=== PATIENT | male | born 1930 | race Caucasian/White ===

== ENCOUNTER → 2016-11-01 | Outpatient (CLI) | payer MEDICARE, OTHER ==
[~2016-11-01] MED LIST: AMARYL4 MG ORAL; AMBIEN5 MG ORAL; ASPIRIN-LOW81 MG ORAL; CALCIUM500 M2 PO; DIOVAN HCT 80MG1 TAB ORAL; DIOVAN80 MG ORAL; FLOMAX0.4 MG ORAL; JANUVIA25 MG ORAL; PROSCAR5 MG ORAL; PROZAC10 MG ORAL; SERTRALINE HCL50 MG ORAL; SIMVASTATIN40 MG ORAL; TEMAZEPAM30 MG ORAL; ZANTAC150 MG ORAL
--- NOTE | 2016-11-01 15:49 | GI Progress Note ---
Assessment/Plan Problems: (1) Appetite loss ICD Codes: R63.0 - Anorexia SNOMED: 43430101 (2) Depression ICD Codes: F32.9 - Major depressive disorder, single episode, unspecified SNOMED: 76982214 (3) Insomnia ICD Codes: G47.00 - Insomnia, unspecified SNOMED: 223177573 (4) Pancreatic cyst ICD Codes: K86.2 - Cyst of pancreas SNOMED: 43362495 (5) Encounter for diagnostic endoscopy ICD Codes: Z01.818 - Encounter for other preprocedural examination SNOMED: 219834986, 085697198 Status: stable Status Narrative Seen with Dr. Hernandez. Assessment/Plan EUS to evaluate pancreatic cyst scheduled 11/09/16 - NPO @ MN day prior to procedure acknowledged by patient. CA19-9 to be drawn procedure day rx Temazepam 15mg #14 Subjective Gastrointestinal/Abdominal: Reports: no symptoms Subjective decrease in appetite depression increased recently insomnia increased recently Objective T 98.4 132/66 P 82 94 RA WT 162 denies weight loss General Appearance: no apparent distress, alert Cardiovascular: normal rate Respiratory/Chest: normal breath sounds, no respiratory distress Abdominal Exam: normal bowel sounds, non tender, soft Extremities: normal range of motion Objective Abdominal MRI >> multiple cystic lesions on pancreas Mary Ellen Boggs N.P. Nov 01, 2016 15:49
[2016-11-01 16:52] VITALS: BP 132/66
== END | disposition home or self-care (01) ==
LOC: PAN 14:41
DX: Z01.818 Encounter for other preprocedural examination (principal); R63.0 Anorexia; F32.9 Major depressive disorder, single episode, unspecified; G47.00 Insomnia, unspecified; K86.2 Cyst of pancreas
CPT/HCPCS: 99211

== ENCOUNTER → 2016-11-19 | Day surgery (SDC) | payer MEDICARE, OTHER ==
[~2016-11-19] VITALS: Ht 167.6 cm; Wt 71.2 kg
[2016-11-19] VITALS (7 sets, daily range): BP systolic 94–137; BP diastolic 52–79
[~2016-11-19] MED LIST changes: +DiphenhydrAMINE 50mg/ml Inj IVP PRN; +LR 1000ml 1,000 ML IVLG SCH; +LR 1000ml ONE; +Labetalol 5mg/ml 20ml vial IV PRN; +Lidocaine 1% MPF 10mg/ml 5ml ONE; +Propofol 10mg/ml 20ml IV ONE
--- NOTE | 2016-11-19 08:22 | Anethesia Preoperative Eval ---
Anesthesia Pre-op PMH/ROS General Date of Evaluation: Nov 19, 2016 Anesthesiologist: Gregorio ASA Score: ASA 3 Mallampati Score Class I : Soft palate, uvula, fauces, pillars visible Class II: Soft palate, uvula, fauces visible Class III: Soft palate, base of uvula visible Class IV: Only hard plate visible Mallampati Classification: Class III Surgeon: David Diagnosis: Pancreatic cyst Surgical Procedure: EUS Anesthesia History: none Family History: no anesthesia problems Allergies: Coded Allergies: NO KNOWN DRUG ALLERGIES (Verified Allergy, Unknown, 11/19/16) Medications: see eMAR Past Medical History Cardiovascular: Reports: HTN, other - HLD, Denies: CAD, [place], arrhythmia, valve dz Pulmonary: Denies: COPD, [place], asthma, other Gastrointestinal/Genitourinary: Reports: GERD - gastritis, other - pancreatic cyst, h/o colon cancer, Denies: CRI, ESRD Neurologic/Psychiatric: Reports: depression/anxiety, Denies: CVA, TIA, dementia, other Endocrine: Reports: DM, Denies: hypothyroidism, other, steroids HEENT: Denies: [place] (L), [place] (R), cataract (L), cataract (R), glaucoma, other Hematology/Immune: Denies: DVT, anemia, bleeding disorder, other Musculoskeletal/Integumentary: Denies: DDD, DJD, OA, RA, edema, other PSxH Narrative: IHR, colon resection, thigh sx, cataract sx Anesthesia Pre-op Phys. Exam Physician Exam see chart Constitutional: NAD Cardiovascular: RRR Respiratory: CTA Airway Exam Mallampati Score: Class II Anesthesia Pre-op A/P Labs see chart Studies Pre-op Studies: EKG - sr Risk Assessment & Plan Assessment: ASA III Plan: MAC Status Change Before Surgery: No Pre-Antibiotics Drug: N/A SHE HINDS M.D. Nov 19, 2016 08:22
--- NOTE | 2016-11-19 10:03 | Pre-Procedure Note/Attestation ---
Pre-Procedure Note/Attestation Complete Prior to Procedure Planned Procedure: not applicable Procedure Narrative: eus Indications for Procedure Pre-Operative Diagnosis: pancreatic cyst Attestation I attest that I discussed the nature of the procedure; its benefits; risks and complications; and alternatives (and the risks and benefits of such alternatives ), prior to the procedure, with the patient (or the patient's legal printing sales representative). I attest that, if there was a reasonable possibility of needing a blood transfusion, the patient (or the patient's legal printing sales representative) was given the [facility] standardized written summary, pursuant to the Ruddy Anika Blood Safety Act ([place] Health and Safety Code # 1645, as amended). I attest that I re-evaluated the patient just prior to the surgery and that there has been no change in the patient's H&P, except as documented below: GREYSON SINGLETON Nov 19, 2016 10:03
[2016-11-19 10:34] LABS: BASOPHILS % (AUTO) 0.3 % (0.0-2.0); EOSINOPHILS % (AUTO) 0.5 % (0.0-3.0); LYMPHOCYTES % (AUTO) 8.9 % (20.0-45.0); MEAN CORPUSCULAR HEMOGLOBIN 32.5 PG (27.0-31.0); MEAN CORPUSCULAR HGB CONC 32.6 G/DL (32.0-36.0); MEAN CORPUSCULAR VOLUME 100 FL (80-99); MEAN PLATELET VOLUME 7.6 FL (6.5-10.1); MONOCYTES % (AUTO) 5.7 % (1.0-10.0); NEUTROPHILS % (AUTO) 84.6 % (45.0-75.0); PLATELET COUNT 176 K/UL (150-450); RED BLOOD COUNT 3.74 M/UL (4.70-6.10); RED CELL DISTRIBUTION WIDTH 10.9 % (11.6-14.8); WHITE BLOOD COUNT 9.3 K/UL (4.8-10.8)
[2016-11-19 10:44] LABS: ALANINE AMINOTRANSFERASE 14 U/L (3-41); ALBUMIN/GLOBULIN RATIO 1.6 (1.0-2.7); AMYLASE 65 U/L (10-110); ANION GAP 14 (5-15); ASPARTATE AMINO TRANSFERASE 12 U/L (5-40); CALCIUM 9.5 mg/dL (8.6-10.2); CARBON DIOXIDE 29 mEQ/L (20-30); CHLORIDE 91 mEQ/L (98-107); CREATININE 0.9 mg/dL (0.7-1.2); HEMOLYSIS 4; LIPASE 25 U/L (< 60); POTASSIUM 4.5 mEQ/L (3.4-4.9); SODIUM 134 mEQ/L (135-145); TOTAL PROTEIN 6.7 g/dL (6.6-8.7)
--- NOTE | 2016-11-19 10:49 | Immediate Post-Op Evaluation ---
Immediate Post-Op Evalulation Immediate Post-Op Evalulation Procedure: EUS Date of Evaluation: Nov 19, 2016 Time of Evaluation: 11:27 IV Fluids: 500 Blood Products: 0 Estimated Blood Loss: 0 Urinary Output: 0 Blood Pressure Systolic: 106 Blood Pressure Diastolic: 58 Pulse Rate: 81 Respiratory Rate: 16 O2 Sat by Pulse Oximetry: 96 Temperature (Fahrenheit): 98.4 Pain Score (1-10): 0 Nausea: No Vomiting: No Complications 0 Patient Status: awake, reacts, patent, none Hydration Status: adequate Drug: N/A SHE HINDS M.D. Nov 19, 2016 10:49
--- NOTE | 2016-11-19 10:50 | 48 Hour Post Anesthesia Eval ---
Post Anesthesia Evaluation Procedure: EUS Date of Evaluation: Nov 19, 2016 Blood Pressure Systolic: 114 0: 71 Pulse Rate: 88 Respiratory Rate: 16 O2 Sat by Pulse Oximetry: 97 Airway: patent Nausea: No Vomiting: No Pain Intensity: 0 Hydration Status: adequate Cardiopulmonary Status: at baseline Mental Status/LOC: patient returned to baseline Post-Anesthesia Complications: 0 Follow-up care needed: ready to discharge SHE HINDS M.D. Nov 19, 2016 10:50
[2016-11-19 11:03] LABS: PROTHROMBIN TIME 10.4 SEC (9.30-11.50)
[2016-11-19 11:04] LABS: BILIRUBIN,DIRECT 0.2 mg/dL (0.1-0.3)
--- NOTE | 2016-11-19 11:48 | Endoscopy Procedure Note ---
Endoscopy Procedure Note Indication for Procedure: pancreatic cyst Procedures Performed: other - EUS Operative Findings/Diagnosis: same Specimen: none Pt Tolerated Procedure Well: Yes Estimated Blood Loss: none Anesthesiologist: mariam Anesthesia: MAC Implant(s) used?: No 50 yrs or older w/o bx or poly: Not Applicable 10yrs. F/U not recommended: Not Applicable GREYSON SINGLETON Nov 19, 2016 11:48
--- NOTE | 2016-11-19 19:48 | Procedure Note ---
DATE OF PROCEDURE: 11/19/2016 SURGEON: Diogo Hernandez M.D. CHIEF COMPLAINT: Pancreatic cyst. PROCEDURE: Endoscopic ultrasound. ANESTHESIOLOGIST: Briseida Perkins M.D. INSTRUMENT: Olympus EUS scope. INDICATIONS: This is an 85-year-old male here for refill for pancreatic cyst. REASON FOR PROCEDURE: The procedure, risks, benefits, and possible consequences, including hemorrhage, aspiration, perforation and infection, and alternative treatments, were explained to the patient/legal guardian by Dr. Diogo Hernandez and the patient/legal guardian understood and accepted these risks. DESCRIPTION OF PROCEDURE: After informed consent was obtained and the patient was adequately sedated, EUS scope was advanced from mouth and second portion of the duodenum and pancreatic parenchyma was carefully examined through the gastroduodenal mucosa. Starting scanning at GE junction, the patient no evidence of obvious celiac axis adenopathy. He has a large left renal cyst. Pancreatic parenchyma was mildly atrophied. There is no evidence of any pancreatic duct dilatation. 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 There was a larger 1 in the tail of the pancreas measured about 4.4 mm. There is also a simple looking cyst in the body of the pancreas from the pancreatic duct, most probably something different measured roughly about 7 mm in size. There was no obvious mass seen in the body noting the head. Common bile duct was also evaluated common bile duct was measured. Maximum diameter in the body was 5.6 at the ampulla was about 7 mm. Pancreatic duct was also mildly dilated. The head of the pancreas measured roughly about 3.8 mm. As I mentioned, there is no obvious tumor seen in this examination. The patient tolerated the procedure without any complication. SUMMARY OF FINDINGS: 1. No obvious lymphadenopathy. 2. Large left renal cyst. 3. Normal left adrenal gland. 4. Mild atrophic pancreatic parenchyma. 5. No pancreatic duct dilatation in the body and tail. 6. Multiple side branches of the pancreatic duct, very small and tiny most of them were highly suspicious for side branch IPMN largest 1 about 4.4 minutes in the care. 7. Simple looking cyst about 7 mm in the body of the pancreas. 8. Minimum dilation of pancreatic duct at the head of the pancreas measured roughly about 4 mm. RECOMMENDATIONS: The patient is to follow in the office for further evaluation and workup. I want to thank Dr. Lisy Rowan, for this kind referral. Diogo Hernandez M.D. DR: Irena JOB#: [id number] CC: Lisy Rowan M.D.; Fax#: [phone] [facility]
--- NOTE | 2016-11-22 15:21 | Cardiology Report ---
APPROVED REPORT EKG Measurement Heart [id number] IN 150P49 [id number] Normal sinus rhythm Right bundle branch block Abnormal ECG
== END | disposition home or self-care (01) ==
LOC: GAS 08:48
DX: K86.2 Cyst of pancreas (principal); N28.1 Cyst of kidney, acquired; I10 Essential (primary) hypertension; E78.5 Hyperlipidemia, unspecified; K21.9 Gastro-esophageal reflux disease without esophagitis; E11.9 Type 2 diabetes mellitus without complications; F32.9 Major depressive disorder, single episode, unspecified; F41.9 Anxiety disorder, unspecified; Z85.038 Personal history of other malignant neoplasm of large intestine; Z90.49 Acquired absence of other specified parts of digestive tract
CPT/HCPCS: 36415; 43237; 80053; 82150; 82248; 82962; 83690; 85025; 85610; 85730; 86301; 93005; J2704; J7120; 94003; 94150

== ENCOUNTER → 2016-12-05 | Outpatient (CLI) | payer MEDICARE, OTHER ==
[~2016-12-05] MED LIST changes: -DiphenhydrAMINE 50mg/ml Inj IVP PRN; -LR 1000ml 1,000 ML IVLG SCH; -LR 1000ml ONE; -Labetalol 5mg/ml 20ml vial IV PRN; -Lidocaine 1% MPF 10mg/ml 5ml ONE; -Propofol 10mg/ml 20ml IV ONE
--- NOTE | 2016-12-05 15:13 | GI Progress Note ---
Assessment/Plan Problems: (1) Pancreatic cyst ICD Codes: K86.2 - Cyst of pancreas SNOMED: 30710692 (2) Depression ICD Codes: F32.9 - Major depressive disorder, single episode, unspecified SNOMED: 79619347 (3) Insomnia ICD Codes: G47.00 - Insomnia, unspecified SNOMED: 196317668 (4) Colon polyps ICD Codes: K63.5 - Colon polyps SNOMED: 80460207 (5) Hemorrhoids ICD Codes: K64.9 - Hemorrhoids SNOMED: 35744788 (6) Colon cancer ICD Codes: C18.9 - Colon cancer SNOMED: 578943975 Status: stable Status Narrative Seen with Dr. Hernandez. Assessment/Plan EUS reviewed >> pancreatic cyst stable, see full report below. RTC prn Subjective Gastrointestinal/Abdominal: Reports: no symptoms Subjective pt here for EUS review denies any abdominal pain or general GI symptoms Objective T 98 BP 124/64 P 92 96 RA Weight (Pounds): 157 General Appearance: no apparent distress, alert Cardiovascular: normal rate Respiratory/Chest: normal breath sounds, no respiratory distress Abdominal Exam: normal bowel sounds, non tender, soft Extremities: normal range of motion - with cane Objective DATE OF PROCEDURE: 11/19/2016 SURGEON: Diogo Hernandez M.D. PROCEDURE: Endoscopic ultrasound. INDICATIONS: This is an 85-year-old male here for evaluation of pancreatic cyst. SUMMARY OF FINDINGS: 1. No obvious lymphadenopathy. 2. Large left renal cyst. 3. Normal left adrenal gland. 4. Mild atrophic pancreatic parenchyma. 5. No pancreatic duct dilatation in the body and tail. 6. Multiple side branches of the pancreatic duct, very small and tiny most of them were highly suspicious for side branch IPMN largest 1 about 4.4 minutes in the care. 7. Simple looking cyst about 7 mm in the body of the pancreas. 8. Minimum dilation of pancreatic duct at the head of the pancreas measured roughly about 4 mm. RECOMMENDATIONS: The patient is to follow in the office for further evaluation and workup. Mary Ellen Boggs N.P. Dec 05, 2016 15:13
== END | disposition home or self-care (01) ==
LOC: PAN 14:41
DX: K86.2 Cyst of pancreas (principal); F32.9 Major depressive disorder, single episode, unspecified; G47.00 Insomnia, unspecified; K63.5 Polyp of colon; K64.9 Unspecified hemorrhoids; C18.9 Malignant neoplasm of colon, unspecified
CPT/HCPCS: 99211